=== PATIENT | male | born 1990 | race African-American/Black ===

== ENCOUNTER 2017-10-27 19:44 | Inpatient (IN) ==
[2017-10-28] MEDS: DEXTROSE 5% NACL 0.45% 1,000 ML IV SCH ×3 (00:10→22:57)
[2017-10-28] MEDS: metroNIDAZOLE INJ 500 MG in PREMIX 1 EACH IV SCH ×5 (00:11→22:59)
[2017-10-28] MEDS: HYDROmorphone 2 MG/1 ML VIAL IV PRN ×3 (00:11→17:21)
[2017-10-28] MEDS: ONDANSETRON 4 MG/2 ML VIAL IV PRN ×2 (00:11→03:55)
[2017-10-28] MEDS ORDERED: INFLUENZA VIRUS VACCINE 0.5 ML SYRINGE IM ONE (00:17)
[2017-10-28] MEDS: PIPERACILLIN/TAZOBACTAM 3,375 MG in SODIUM CHLORIDE 0.9% 100 ML IV SCH ×3 (01:23→17:24)
[2017-10-28 08:08] LABS: Basophils % 0.3 % (0.0-0.8); Eosinophils # 0.1 10*3/uL (0.0-0.87); Eosinophils % 1.2 % (0.00-10.9); Hematocrit 41.7 VOL% (42.0-52.0); Immature Granulocytes % 0.5 %; Immature Granulocytes Absolute 0.06 #; Lymphocytes # 0.8 10*3/uL (1.4-4.0); Lymphocytes % 6.6 % (21.2-54.2); Mean Corpuscular HGB Conc 33.6 GM/DL (32-36); Mean Corpuscular Hemoglobin 28 PG (27-34); Mean Corpuscular Volume 83.1 FL (87-102); Mean Platelet Volume 10.3 FL (9.6-12.0); Monocytes # 0.8 10*3/uL (0.11-0.8); Monocytes % 6.6 % (1.7-12.7); Neutrophils % 84.8 % (38.7-73.9); Platelet Count 222 T/CUMM (130-400); Red Blood Count 5.02 MC/CUMM (3.8-5.5); Red Cell Distribution Width 13.1 % (9.3-17.3); White Blood Count 11.8 T/CUMM (4-12)
[2017-10-28 08:16] LABS: INR 1.1; PT Patient Result 11.9 SECS; Partial Thromboplastin Time 28.7 SECS (0-40)
[2017-10-28 08:52] LABS: Albumin 3.8 G/DL (3.4-5.0); Bilirubin,Total 5.1 MG/DL (0.2-1.0); Calcium 8.8 MG/DL (8.5-10.1); Osmolality,Calculated 275.7 MOS/KG (273-304); Potassium 3.6 MMOL/L (3.5-5.1)
[2017-10-28] MEDS: PANTOPRAZOLE 40 MG VIAL IV SCH (09:03)
[2017-10-28] MEDS ORDERED: MIDAZOLAM 2 MG/2 ML VIAL ONE (12:51)
[2017-10-28] MEDS ORDERED: fentaNYL 100 MCG/2 ML VIAL ONE (12:51)
[2017-10-28] MEDS ORDERED: LIDOCAINE 2% 5 ML VIAL ONE (13:30)
[2017-10-28] MEDS ORDERED: PROPOFOL 200 MG/20 ML VIAL IV ONE (13:30)
[2017-10-28] MEDS ORDERED: ONDANSETRON 4 MG/2 ML VIAL ONE (13:30)
[2017-10-29] MEDS: PIPERACILLIN/TAZOBACTAM 3,375 MG in SODIUM CHLORIDE 0.9% 100 ML IV SCH ×4 (00:50→23:58)
[2017-10-29 04:38] LABS: Basophils % 0.3 % (0.0-0.8); Eosinophils # 0.3 10*3/uL (0.0-0.87); Eosinophils % 4.3 % (0.00-10.9); Immature Granulocytes % 0.3 %; Immature Granulocytes Absolute 0.02 #; Lymphocytes % 16.7 % (21.2-54.2); Mean Corpuscular HGB Conc 32.5 GM/DL (32-36); Mean Corpuscular Hemoglobin 28 PG (27-34); Mean Corpuscular Volume 85.1 FL (87-102); Mean Platelet Volume 10.3 FL (9.6-12.0); Monocytes # 0.5 10*3/uL (0.11-0.8); Monocytes % 7.5 % (1.7-12.7); Neutrophils # 4.2 10*3/uL (1.4-7.4); Neutrophils % 70.9 % (38.7-73.9); Platelet Count 197 T/CUMM (130-400); Red Cell Distribution Width 13.2 % (9.3-17.3)
[2017-10-29 05:10] LABS: Albumin 3.5 G/DL (3.4-5.0); Calcium 8.5 MG/DL (8.5-10.1); Osmolality,Calculated 281.1 MOS/KG (273-304); Potassium 3.7 MMOL/L (3.5-5.1); Total Protein 6.3 G/DL (6.4-8.3)
[2017-10-29] MEDS: metroNIDAZOLE INJ 500 MG in PREMIX 1 EACH IV SCH ×4 (05:17→22:28)
[2017-10-29] MEDS: DEXTROSE 5% NACL 0.45% 1,000 ML IV SCH ×2 (07:29→16:36)
[2017-10-29] MEDS: PANTOPRAZOLE 40 MG VIAL IV SCH (09:53)
[2017-10-29] MEDS: HYDROmorphone 2 MG/1 ML VIAL IV PRN ×3 (10:56→22:21)
[2017-10-30] MEDS: DEXTROSE 5% NACL 0.45% 1,000 ML IV SCH ×3 (01:07→23:32)
[2017-10-30] MEDS: metroNIDAZOLE INJ 500 MG in PREMIX 1 EACH IV SCH ×4 (05:14→23:35)
[2017-10-30] MEDS: PIPERACILLIN/TAZOBACTAM 3,375 MG in SODIUM CHLORIDE 0.9% 100 ML IV SCH ×2 (07:17→16:27)
[2017-10-30] MEDS ORDERED: BUPIVACAINE 0.25% 50 ML VIAL ONE (09:42)
[2017-10-30] MEDS ORDERED: NALOXONE 0.4 MG/ML VIAL IV PRN (11:42)
[2017-10-30] MEDS ORDERED: PROPOFOL 200 MG/20 ML VIAL IV ONE (11:57)
[2017-10-30] MEDS ORDERED: ONDANSETRON 4 MG/2 ML VIAL IV PRN (11:57)
[2017-10-30] MEDS ORDERED: fentaNYL 100 MCG/2 ML VIAL ONE (11:58)
[2017-10-30] MEDS ORDERED: MIDAZOLAM 2 MG/2 ML VIAL ONE (11:58)
[2017-10-30] MEDS ORDERED: DEXAMETHASONE 10 MG/1 ML VIAL ONE (11:58)
[2017-10-30] MEDS ORDERED: GLYCOPYRROLATE 0.4 MG/2 ML VIAL ONE (11:58)
[2017-10-30] MEDS ORDERED: ONDANSETRON 4 MG/2 ML VIAL ONE ×2 (11:58→12:01)
[2017-10-30] MEDS ORDERED: KETOROLAC 30 MG/1 ML VIAL ONE (11:59)
[2017-10-30] MEDS ORDERED: ACETAMINOPHEN 1,000 MG/100 ML VIAL IV ONE (11:59)
[2017-10-30] MEDS ORDERED: ROCURONIUM 100 MG/10 ML VIAL IV ONE (11:59)
[2017-10-30] MEDS ORDERED: NEOSTIGMINE 10 MG/10 ML VIAL ONE (11:59)
[2017-10-30] MEDS ORDERED: HYDROmorphone 2 MG/1 ML VIAL ONE (12:01)
[2017-10-30] MEDS: HYDROmorphone 2 MG/1 ML VIAL IV PRN ×4 (12:08→12:27)
[2017-10-30] MEDS: HYDROmorphone PCA 30 MG/30 ML SYRINGE IV SCH (13:31)
[2017-10-30] MEDS: PANTOPRAZOLE 40 MG VIAL IV SCH (16:21)
[2017-10-31] MEDS: DEXTROSE 5% NACL 0.45% 1,000 ML IV SCH ×2 (01:08→11:46)
[2017-10-31] MEDS: PIPERACILLIN/TAZOBACTAM 3,375 MG in SODIUM CHLORIDE 0.9% 100 ML IV SCH ×3 (01:08→15:12)
[2017-10-31] MEDS: metroNIDAZOLE INJ 500 MG in PREMIX 1 EACH IV SCH ×4 (05:32→23:38)
[2017-10-31] MEDS: ONDANSETRON 4 MG/2 ML VIAL IV PRN ×3 (05:54→20:52)
[2017-10-31] MEDS: PANTOPRAZOLE 40 MG VIAL IV SCH (09:43)
[2017-10-31] MEDS: HYDROmorphone PCA 30 MG/30 ML SYRINGE IV SCH (14:17)
[2017-11-01] MEDS: HYDROmorphone PCA 30 MG/30 ML SYRINGE IV SCH (00:30)
[2017-11-01] MEDS: PIPERACILLIN/TAZOBACTAM 3,375 MG in SODIUM CHLORIDE 0.9% 100 ML IV SCH ×3 (01:12→18:14)
[2017-11-01] MEDS: ONDANSETRON 4 MG/2 ML VIAL IV PRN ×3 (01:44→21:09)
[2017-11-01] MEDS: metroNIDAZOLE INJ 500 MG in PREMIX 1 EACH IV SCH ×4 (06:20→23:41)
[2017-11-01] MEDS: PANTOPRAZOLE 40 MG VIAL IV SCH (09:09)
[2017-11-01] MEDS: DEXTROSE 5% NACL 0.45% 1,000 ML IV SCH (09:14)
[2017-11-01] MEDS ORDERED: MAGNESIUM HYDROXIDE SUSP 30 ML UDCUP PO PRN (11:33)
[2017-11-01] MEDS: MORPHINE 2 MG/1 ML SYRINGE IV PRN ×2 (18:14→21:08)
[2017-11-02] MEDS: PIPERACILLIN/TAZOBACTAM 3,375 MG in SODIUM CHLORIDE 0.9% 100 ML IV SCH ×2 (01:37→09:36)
[2017-11-02] MEDS: metroNIDAZOLE INJ 500 MG in PREMIX 1 EACH IV SCH ×2 (05:19→14:30)
[2017-11-02] MEDS ORDERED: BISACODYL 10 MG SUPP RECTAL ONE (08:16)
[2017-11-02] MEDS ORDERED: PANTOPRAZOLE 40 MG TABLET PO SCH (09:00)
[2017-11-02 10:59] VITALS: BP 130/82
== END 2017-11-02 17:00 | disposition home or self-care (01) | DRG 416 ==
LOC: N.ED 19:44 → N.EDINP 21:26 → N.3E 21:51
PROVIDERS: ADMIT Surgery; ATTEND Surgery
PROC: LAPCHOL (2017-10-30 09:55)